=== PATIENT | male | born 1970 | race Caucasian/White ===

== ENCOUNTER 2016-12-01 07:15 | Inpatient (IN) | payer OTHER ==
[2016-11-20 13:36] VITALS: BMI 28.0
--- NOTE | 2016-11-20 14:06 | PAT Medication Instructions ---
Service Date Nov 20, 2016. Current Home Medication List Albuterol (Proair Hfa), 2 PUFFS INH Q4H PRN for Asthma Symptoms Losartan Potassium (Cozaar), 50 MG PO QAM Sertraline (Zoloft), 50 MG PO QPM Medication Instructions For Your Scheduled Surgery - Hold the following medications the morning of surgery: Losartan Potassium (Cozaar), 50 MG PO QAM - Take the following medications the morning of surgery with a sip of water: Albuterol (Proair Hfa), 2 PUFFS INH Q4H PRN for Asthma Symptoms (bring with you to hospital morning of surgery) - Take the following medications as scheduled the night before surgery: Sertraline (Zoloft), 50 MG PO QPM Albuterol (Proair Hfa), 2 PUFFS INH Q4H PRN for Asthma Symptoms If you have any questions please call us at [phone] (Anabelle Burt PA-C) or [phone] or [phone]
--- NOTE | 2016-11-20 14:34 | DIAGNOSTIC IMAGING REPORT ---
CHEST 2 VIEWS ROUTINE CLINICAL HISTORY: PAT preoperative evaluation COMPARISON STUDY: 10/12/2016 FINDINGS: The bones soft tissues and hemidiaphragms are normal. The cardiomediastinal silhouette is normal. The lungs are clear. The pulmonary vasculature is normal. IMPRESSION: Negative chest. Electronically signed by: Remy Haile M.D. 11/20/2016 2:32 PM Dictated Date/Time: 11/20/2016 2:32 PM
[2016-11-20 14:58] LABS: PARTIAL THROMBOPLASTIN RATIO 1.2; PROTHROMBIN TIME (PATIENT) 10.4 SECONDS (9.0-12.0)
--- NOTE | 2016-11-28 10:10 | HISTORY & PHYSICAL EXAMINATION ---
DATE OF ADMISSION: 12/01/2016 CHIEF COMPLAINT: Right knee pain. HISTORY OF PRESENT ILLNESS: Trevon is a 46-year-old male with a 1-year history of pain in his right knee. The patient rates his pain an 8/10. He has pain with his daily activities. He has limited standing and walking tolerance. Pain is worse with weightbearing. The patient has had injections, anti-inflammatories, and home exercise program without relief. He has failed conservative treatment and is scheduled for right knee replacement. PAST MEDICAL HISTORY: Hypertension, asthma and anxiety. He denies heart disease, diabetes or DVT. PAST SURGICAL HISTORY: Umbilical hernia, right knee arthroscopy, right ankle surgery and right knee arthroscopy. SOCIAL HISTORY: The patient denies alcohol or tobacco use. He lives in a 2-story home. He is and works as an OR aide. FAMILY HISTORY: The patient is adopted. MEDICATIONS: Losartan, sertraline, and NSAIDS. ALLERGIES: None. REVIEW OF SYSTEMS: See HPI. Ten other systems reviewed, all negative. PHYSICAL EXAMINATION: VITAL SIGNS: Height 5 foot 9, weight 193 pounds, BMI is 28. GENERAL: This is a well-developed, well-nourished male who is alert and oriented x3. Mood and affect are appropriate. HEAD, EYES, EARS, NOSE, AND THROAT: Normocephalic, atraumatic. Mucous membranes are moist and intact. NECK: Supple without lymphadenopathy. HEART: Regular rate and rhythm without murmurs, rubs or gallops. LUNGS: Clear to auscultation without wheezes or rhonchi. ABDOMEN: Soft and nontender. Bowel sounds are equal and active. EXTREMITIES: No ecchymosis, redness or warmth. He has neutral alignment. Range of motion is from 0-120 degrees with +1 laxity. He is neurovascularly intact with +5/5 strength. X-RAY EXAMINATION: AP and lateral views show joint space narrowing and osteophyte formation. IMPRESSION: Degenerative joint disease, right knee. PLAN: The patient will be admitted for a right total knee arthroplasty potentially cruciate retaining. We will plan on aspirin for DVT prophylaxis. The patient's PCP is Dr. Hunt. He is doing [facility] for home physical therapy.
[~2016-12-01] VITALS: Ht 175.3 cm; Wt 85.0 kg
[2016-12-01] VITALS (8 sets, daily range): BP systolic 105–155; BP diastolic 66–112; PULSE 62–99; TEMP 36.5–36.7; O2SAT 95–98; Ht 175.3 cm; Wt 85.0 kg
[2016-12-01] MEDS: TRANEXAMIC ACID INJ 1,000 MG in SODIUM CHLORIDE 0.9% 100ML 100 ML IV SCH ×2 (06:30→09:15)
[~2016-12-01 07:15] MED LIST: ACETAMINOPHEN 500 MG TAB PO SCH; ALBU1AER9 INH; BUPIVACAINE 0.25% 30 ML VIAL ONE; BUPIVACAINE 0.5 % 5 MG/1 ML PF 10ML VIAL ONE; CEFAZOLIN 2000 MG/60 ML D5W 60 ML IV SCH; CeleBREX 200 MG CAP PO SCH; DEXAMETHASONE 4 MG TAB PO SCH; FAMOTIDINE 20 MG TAB PO SCH; FENTANYL CITRATE INJ 50 MCG/1 ML 2 ML VIAL ONE; GABAPENTIN 300 MG CAP PO SCH; LACTATED RINGER'S 1000ML 1,000 ML IV SCH; LACTATED RINGER'S 1000ML 500 ML IV ONE; LACTATED RINGER'S 1000ML IV SCH; LOSA50TA54 PO; METOCLOPRAMIDE HCL 10 MG TAB PO SCH; MIDAZOLAM HCL 1 MG/ML 2ML VIAL ONE; OXYCODONE HCL 10 MG TABCR (OXYCONTIN) PO SCH; POLYMYXIN B SULFATE 100,000 UNITS in NSS 100ML IR SCH; ROPIVACAINE 5MG/ML 30 ML 150 MG, BUPIVACAINE/EPINEPHR 0.5% MPF 30 ML, KETOROLAC TROMETH... INFIL SCH; SERT50TA PO; VANCOMYCIN INJ 400 MG in NSS 100ML IR SCH
--- NOTE | 2016-12-01 08:23 | History & Physical Bridge Note ---
H&P Re-Evaluation Bridge Note: I have examined the patient, reviewed the History & Physical and in the interval since the performance of the History & Physical I have noted the following changes of clinical significance: No changes noted
[2016-12-01] MEDS ORDERED: ORTHO JOINT ANESTHETIC ONE (08:58)
[2016-12-01] MEDS ORDERED: ONDANSETRON INJ 2 MG/ML 2 ML VIAL ONE (08:59)
[2016-12-01] MEDS ORDERED: PROPOFOL IV EMULSION 10 MG/ML 20 ML VIAL IV ONE (08:59)
[2016-12-01] MEDS ORDERED: LIDOCAINE HCL 2% 2 ML VIAL (20MG/ML) ONE (08:59)
[2016-12-01] MEDS ORDERED: MEPERIDINE HCL 25 MG/ML CARP IV PRN (09:00)
[2016-12-01] MEDS ORDERED: EpHEDrine SULFATE INJ 50 MG/ML AMP IV PRN (09:00)
[2016-12-01] MEDS ORDERED: ONDANSETRON INJ 2 MG/ML 2 ML VIAL IV PRN ×2 (09:00→11:30)
[2016-12-01] MEDS ORDERED: HYDROmorphone INJ 1 MG/ML SYR IV PRN (09:00)
[2016-12-01] MEDS ORDERED: FENTANYL CITRATE INJ 50 MCG/1 ML 2 ML VIAL IV PRN (09:00)
[2016-12-01] MEDS ORDERED: LABETALOL HCL IV 5 MG/ML 20ML IV PRN (09:00)
[2016-12-01] MEDS ORDERED: ATROPINE SULFATE 0.1 MG/ML 5ML SYR IV PRN (09:00)
[2016-12-01] MEDS ORDERED: BACITRACIN 50000 UNIT VIAL IR ONE (10:28)
[2016-12-01] MEDS ORDERED: BUPIVACAINE/EPINEPHRINE 0.25% 1:200,000 30 ML VIAL INJ ONE (10:28)
[2016-12-01] MEDS ORDERED: EpHEDrine SULFATE 50MG/5ML SYR ONE (10:44)
[2016-12-01] MEDS ORDERED: POVIDONE-IODINE OP SOLN 30 ML BTL TOP ONE (11:21)
--- NOTE | 2016-12-01 11:21 | [facility] Post Operative Brief Note ---
Immediate Operative Summary Operative Date Dec 01, 2016. Pre-Operative Diagnosis Degenerative Joint Disease Right Knee Post-Operative Diagnosis Degenerative Joint Disease Right Knee Procedure(s) Performed Right Total Knee Arthroplasty Bi-Cruciating Surgeon Dr. Carrington Duff Vice Chair Surgeon(s) JW Lang Estimated Blood Loss 50 ml Findings lateral pf dz acl intacr Specimens A. Right Knee Bone and Tissue Complication(s) None Disposition Recovery Room / PACU
[2016-12-01] MEDS ORDERED: BISACODYL 10 MG SUPP PR PRN (11:30)
[2016-12-01] MEDS ORDERED: METOCLOPRAMIDE HCL INJ 5 MG/ML 2 ML VIAL IV PRN (11:30)
[2016-12-01] MEDS ORDERED: TRAMADOL HCL 50 MG TAB PO PRN (11:30)
[2016-12-01] MEDS ORDERED: SOD PHOSPHATE/SOD BIPHOSPHATE ENEMA 132 ML BTL PR PRN (11:30)
[2016-12-01] MEDS ORDERED: ZOLPIDEM TARTRATE 5 MG TAB PO PRN (11:30)
[2016-12-01] MEDS ORDERED: ALBUTEROL HFA 8 GM INHALER INH PRN (11:30)
[2016-12-01] MEDS ORDERED: DiphenhydrAMINE HCL 50 MG/ML VIAL IV PRN (11:30)
[2016-12-01] MEDS ORDERED: MoRPHine SULFATE 2 MG/ML CARP IV PRN (11:30)
[2016-12-01] MEDS ORDERED: MAGNESIUM HYDROXIDE SUSP 30 ML UDC PO PRN (11:30)
[2016-12-01] MEDS ORDERED: ALUMINUM/MAGNESIUM/SIMETH (MAALOX MAX) 30 ML UDC PO PRN (11:30)
--- NOTE | 2016-12-01 12:17 | DIAGNOSTIC IMAGING REPORT ---
RIGHT KNEE 1 OR 2 VIEWS ROUTINE CLINICAL HISTORY: Right knee arthritis. Arthroplasty. COMPARISON: None FINDINGS: Alignment of the right knee arthroplasty is anatomic. There is no fracture or unexpected radiopaque foreign body. Drain is in place. IMPRESSION: Expected findings following total right knee arthroplasty Electronically signed by: Morales Isidro M.D. 12/01/2016 12:15 PM Dictated Date/Time: 12/01/2016 12:15 PM
[2016-12-01] MEDS: ACETAMINOPHEN 500 MG TAB PO SCH ×2 (14:00→21:40)
[2016-12-01] MEDS: KETOROLAC TROMETHAMINE 30 MG/ML VIAL IV. SCH ×2 (14:01→19:44)
[2016-12-01] MEDS: D5W AND 1/2NSS + 20MEQ KCL 1,000 ML IV SCH ×2 (14:01→23:46)
--- NOTE | 2016-12-01 14:36 | Anesthesiology Progress Note ---
Anesthesia Post Op Note Date & Time Dec 01, 2016 at 14:35 Vital Signs Pain Intensity: 0.0 Vital Signs Past 12 Hours Date Time Temp Pulse Resp B/P Pulse Ox O2 Delivery O2 Flow Rate FiO2 12/01/16 13:50 91 16 122/80 97 2.0 12/01/16 13:20 36.7 64 18 121/80 96 Nasal Cannula 2.0 12/01/16 12:50 36.5 73 16 113/69 95 Nasal Cannula 2.0 12/01/16 12:50 Nasal Cannula 2.0 12/01/16 12:50 95 Nasal Cannula 2.0 12/01/16 12:40 65 14 111/68 97 Nasal Cannula 2 12/01/16 12:30 36.1 72 17 104/68 97 Nasal Cannula 2 12/01/16 12:20 74 24 106/70 97 Nasal Cannula 2 12/01/16 12:10 65 16 102/70 96 Nasal Cannula 2 12/01/16 12:00 63 16 104/67 97 Nasal Cannula 2 12/01/16 11:50 36.3 70 14 100/60 94 Nasal Cannula 2 12/01/16 07:58 36.5 75 20 155/112 98 Room Air Notes Mental Status: alert / awake / arousable, participated in evaluation Pt Amnestic to Procedure: Yes Nausea / Vomiting: adequately controlled Pain: adequately controlled Airway Patency, RR, SpO2: stable & adequate BP & HR: stable & adequate Hydration State: stable & adequate Neuraxial Anesthesia: was administered, sensory block is resolving Anesthetic Complications: no major complications apparent
[2016-12-01] MEDS: OXYCODONE HCL IR 5 MG TAB (IMMEDIATE RELEASE) PO PRN ×4 (15:13→23:47)
[2016-12-01] MEDS ORDERED: TRANEXAMIC ACID INJ 1,000 MG in SODIUM CHLORIDE 0.9% 100ML 100 ML IV SCH (18:00)
[2016-12-01] MEDS: CEFAZOLIN IV 2,000 MG in DEXTROSE 5% 50ML 50 ML IV SCH (18:21)
--- NOTE | 2016-12-01 19:32 | OPERATIVE REPORT ---
DATE OF OPERATION: 12/01/2016 PREOPERATIVE DIAGNOSIS: Degenerative arthritis, right knee. POSTOPERATIVE DIAGNOSIS: Same. PROCEDURE: Right total knee replacement. SURGEON: Juan R Duff MD CAMERA OPERATOR: JW Lang. ANESTHESIA: Spinal. TOURNIQUET TIME: 20 minutes at 250 mmHg. BLOOD LOSS: 50 mL. REPLACEMENT FLUIDS: 1800 mL of crystalloid. DRAINS: Hemovac x2. CULTURES: None. COMPLICATIONS: None. COMPONENTS USED: Marie \T\ Nephew Journey bicruciate retaining knee. Femur size 6, tibial insert size 5 x 9 both medially and laterally. Patella size 35. NOTE: JW Lang was present and assisted throughout due to the complicated nature of this case. She helped with preparation and setup, first assisted throughout and personally closed the capsule, subcutaneous and skin layers and applied the postoperative dressing. DESCRIPTION: Following satisfactory spinal, the patient was supine. A tourniquet was placed but not initially inflated. The lower extremity was prepared with ChloraPrep and draped sterilely. Following a surgical time-out, a midline incision was made with a medium parapatellar approach. The knee showed significant changes in the lateral compartment and patellofemoral joint. The anterior cruciate ligament was intact. Using the patient matched block, the distal femur was sized and shaped for a size 6 cruciate retaining femur. Attention was then turned to the tibia. Using the extramedullary alignment guide, the medial tibia was resected at a depth of 9 mm with appropriate slope, taking care to preserve the bony island of the anterior cruciate ligament. A trial reduction with a 9 mm insert showed full extension and 1-2 mm of laxity in flexion and extension. Therefore, the lateral side was completed and again 9 mm insert showed very good extension and flexion with appropriate laxity and the patella tracking well. The patella was freehand cut and sized and tracked well. The tourniquet was inflated for better cement technique. The trial components were removed. The capsule was prepared with the orthopedic cocktail and after irrigation, the components were cemented using Simplex G cement. A Betadine soak was performed. When the cement had hardened, the Betadine was irrigated. The tourniquet was deflated. The 2 drains were placed. The arthrotomy was closed with a running suture of 0 V-Loc and reinforced with #1 Vicryl. The subcutaneous tissues with 2-0 Vicryl, the skin with a running subcuticular stitch of 3-0 V-Loc. Dermabond and a dry dressing were applied. The patient was returned to his bed in stable condition. I attest to the content of the Intraoperative Record and any orders documented therein. Any exceptio ns are noted below.
[2016-12-01] MEDS ORDERED: SENNA 8.6 MG TAB PO SCH (21:00)
[2016-12-01] MEDS ORDERED: SERTRALINE HCL 50 MG TAB PO SCH (21:00)
[2016-12-01] MEDS: OXYCODONE HCL 10 MG TABCR (OXYCONTIN) PO SCH (21:39)
[2016-12-01] MEDS: ASPIRIN 81 MG ECTAB PO SCH (21:41)
[2016-12-02] VITALS (10 sets, daily range): BP systolic 82–123; BP diastolic 56–78; PULSE 48–61; TEMP 36.3–36.5; O2SAT 90–99
[2016-12-02] MEDS: CEFAZOLIN IV 2,000 MG in DEXTROSE 5% 50ML 50 ML IV SCH (01:48)
[2016-12-02] MEDS: KETOROLAC TROMETHAMINE 30 MG/ML VIAL IV. SCH ×3 (01:48→13:33)
[2016-12-02] MEDS: ACETAMINOPHEN 500 MG TAB PO SCH ×2 (05:38→13:33)
[2016-12-02 07:12] LABS: HEMATOCRIT 33.3 % (42-52); MEAN CELL VOLUME 89.3 fL (80-100); MEAN CORPUSCULAR HEMOGLOBIN 31.4 pg (25-34); MEAN CORPUSCULAR HGB CONC 35.1 g/dl (32-36); MEAN PLATELET VOLUME 9.7 fL (7.4-10.4); PLATELET COUNT 234 K/uL (130-400); RED BLOOD COUNT 3.73 M/uL (4.7-6.1); WHITE BLOOD COUNT 13.28 K/uL (4.8-10.8)
[2016-12-02 07:40] LABS: CALCIUM 8.3 mg/dl (8.5-10.1); POTASSIUM 4.1 mmol/L (3.5-5.1)
--- NOTE | 2016-12-02 08:04 | Anesthesiology Progress Note ---
Anesthesia Post Op Note Date & Time Dec 02, 2016 at 08:03 Vital Signs Pain Intensity: 6.0 Vital Signs Past 12 Hours Date Time Temp Pulse Resp B/P Pulse Ox O2 Delivery O2 Flow Rate FiO2 12/02/16 07:03 36.5 61 19 111/73 98 Room Air 12/02/16 07:00 Room Air 12/02/16 02:45 36.4 56 18 107/69 98 Room Air 12/01/16 23:45 Room Air 12/01/16 23:02 36.6 62 18 105/66 97 Room Air Notes Mental Status: alert / awake / arousable, participated in evaluation Pt Amnestic to Procedure: Yes Nausea / Vomiting: adequately controlled Pain: adequately controlled Airway Patency, RR, SpO2: stable & adequate BP & HR: stable & adequate Hydration State: stable & adequate Neuraxial Anesthesia: sensory block resolved Anesthetic Complications: no major complications apparent
--- NOTE | 2016-12-02 08:24 | Discharge Instructions ---
Discharge Instructions Admission Reason for Admission: Right Knee Arthritis Discharge Discharge Diagnosis / Problem: SP RIGHT TKA Discharge Goals Goal(s): Decrease discomfort, Improve function, Increase independence Activity Recommendations Activity Limitations: per Instructions/Follow-up section . Instructions / Follow-Up Instructions / Follow-Up ACTIVITY RECOMMENDATIONS: SELF CARE INSTRUCTIONS AFTER TOTAL KNEE REPLACEMENT A. You may need to continue a physical therapy program after discharge from the hospital. There are several options available to you. Your doctor will assist you in selecting the best one for you. 1. An out-patient facility 2 to 3 times a week for therapy or home therapy. 2. Continue working on all exercises taught to you in the hospital. Your goals should be to increase bending of your knee to 90 degrees and beyond and to fully straighten your knee. B. You may progress at your own pace from walking with a walker or crutches to a cane; then to no assistive devices. C. Make walking a part of your daily routine. Be up as much as comfortable with rest periods throughout the day. Rest with leg elevation is very important. Use the ice wrap frequently for the first 3-4 weeks. D. There are no restrictions on activities. You may ride in a car, shop, participate in metal cnc operator and all social activities. E. Wear the long elastic stockings (MARYLOU hose) 20 hours a day for 2 weeks after surgery. They can be removed several times a day for laundering and for a bath. F. You may shower, no tub baths until cleared by your doctor. SPECIAL CARE INSTRUCTIONS: VERY IMPORTANT TO READ AND REVIEW A. There are a few signs you need to watch for after you are home. Call [facility] if you notice any of the followin. Increased severe knee pain. Some pain is expected especially when you exercise. 2. Increased swelling in your leg or knee; pain or swelling of the calf muscle in either lower leg. 3. Any fluid drainage from the incision. 4. Shortness of breath or chest pain. B. Please call [facility] at if you have any concerns or questions about your operation or recovery. The doctor or his nurse will return your call promptly. C. You must take antibiotics before dental work, bladder, bowel or other surgery. Your doctor will provide you with a permanent care to carry describing this precaution. IMPORTANT: * REMEMBER TO TAKE ASPIRIN, 81 MG, TWICE DAILY FOR 4 WEEKS UNLESS OTHERWISE DIRECTED. THIS IS YOUR BLOOD THINNER. * HIGH RISK PATIENTS MAY BE PRESCRIBED A STRONGER BLOOD THINNER. THIS WILL BE PROVIDED AT DISCHARGE. * CALL IF INCREASED PAIN, REDNESS, DRAINAGE OR FEVER GREATER THAT 101. * WEAR MARYLOU HOSE 20 HOURS PER DAY FOR 2 WEEKS. DERMABOND Prineo- This is a mesh tape dressing that is covered with glue. It should remain in place until the incision is properly healed, usually 10-14 days. This dressing is designed to naturally slough off. You may trim the excess mesh tape as it peels off. Incision may be briefly wet in a shower. Dry immediately by blotting with a clean, dry towel. Do not bath or swim until instructed by your doctor. Do not scratch, rub, or pick at the dressing. Do not apply any topical ointments or lotions until dressing is completely removed and/or instructed by your doctor. There may be a small piece of suture material at one end of your incision. Do not pull or trim this. If it is bothersome or catching on clothing, you may cover it with a band-aid. FOLLOW UP VISIT: If appointment is not already scheduled: Please call [facility] to make a follow-up appointment for 2 weeks after your surgery at . Current Hospital Diet Patient's current hospital diet: Regular Diet Discharge Diet Recommended Diet: Regular Diet Procedures Procedures Performed: Right Total Knee Arthroplasty Bi-Cruciating Pending Studies Studies pending at discharge: no Laboratory Results Lipid Panel Test 09/10/16 08:01 Range/Units Triglycerides Level 319 H 0-150 mg/dl Cholesterol Level 244 H 0-200 mg/dl HDL Cholesterol 41 mg/dl Cholesterol/HDL Ratio 6.0 LDL Cholesterol, Calculated 139 mg/dl Medical Emergencies . Who to Call and When: Medical Emergencies: If at any time you feel your situation is an emergency, please call 911 immediately. . Non-Emergent Contact Non-Emergency issues call your: Primary Care Provider . "Provider Documentation" section prepared by Carolina Casas. VTE Core Measure Inpt VTE Proph given/why not?: Other Anticoagulation, T.E.D. Stockings, SCD's
[2016-12-02] MEDS ORDERED: ASPEC81 PO (08:26)
[2016-12-02] MEDS ORDERED: MORP-157 PO (08:26)
[2016-12-02] MEDS ORDERED: ACET-1138 PO (08:26)
[2016-12-02] MEDS ORDERED: CLB200 PO (08:26)
[2016-12-02] MEDS ORDERED: RXC5 PO (08:26)
[2016-12-02] MEDS ORDERED: SNK PO (08:26)
[2016-12-02] MEDS ORDERED: ONDA8TAB6 PO (08:26)
[2016-12-02] MEDS: ASPIRIN 81 MG ECTAB PO SCH (08:27)
[2016-12-02] MEDS: OXYCODONE HCL 10 MG TABCR (OXYCONTIN) PO SCH (08:29)
--- NOTE | 2016-12-02 08:39 | DISCHARGE SUMMARY ---
DISCHARGE DIAGNOSIS: Degenerative joint disease, right knee. SECONDARY DIAGNOSIS: None. CONSULTS: None. COMPLICATIONS: None. PROCEDURE: The patient underwent a cruciate-retaining right total knee replacement with Dr. Duff on 12/01/2016. BRIEF HISTORY: Please see previously dictated history and physical. HOSPITAL SUMMARY: The patient was admitted on the above day for the above procedure. Procedure went without complication. Postop day 1 the patient was feeling well without complaints. He denied chest pain or shortness of breath. Vital signs were stable. He was afebrile. Dressing was clean, dry and intact. He was neurovascularly intact. Calves were soft and nontender. Hemovac drained 240 and 130 mL. Hemoglobin was 11.7. The patient began physical therapy per protocol. He was discharged to home later that day in stable condition. For further review please see the chart. Lab, x-ray data and discharge instructions as per chart.
[2016-12-02] MEDS ORDERED: PANTOprazole SOD 40 MG TAB PO SCH (09:00)
[2016-12-02] MEDS ORDERED: LOSARTAN POTASSIUM 50 MG TAB PO SCH (09:00)
[2016-12-02] MEDS ORDERED: MULTIVITAMIN TAB PO SCH (09:00)
[2016-12-02] MEDS: D5W AND 1/2NSS + 20MEQ KCL 1,000 ML IV SCH (09:40)
[2016-12-02] MEDS: OXYCODONE HCL IR 5 MG TAB (IMMEDIATE RELEASE) PO PRN (09:50)
[2016-12-03] MEDS ORDERED: CeleBREX 200 MG CAP PO SCH (21:00)
== END 2016-12-02 16:45 | disposition home health service (06) | DRG 470 ==
LOC: ENRESERVDT → ENRESERVTM → C.ACU 07:15 → C.3E 07:40
PROVIDERS: ADMIT Orthopaedic Surgery; ATTEND Orthopaedic Surgery
PROC: 0SRC0J9 Replacement of Right Knee Joint with Synthetic Substitute, Cemented, Open Approach (ICD-10-PCS; principal; 2016-12-01 09:45)
DX: M17.11 Unilateral primary osteoarthritis, right knee (principal); I10 Essential (primary) hypertension; J45.909 Unspecified asthma, uncomplicated; F32.9 Major depressive disorder, single episode, unspecified; F41.9 Anxiety disorder, unspecified; Z79.1 Long term (current) use of non-steroidal anti-inflammatories (NSAID); Z79.899 Other long term (current) drug therapy

== ENCOUNTER 2016-12-22 22:02 | Emergency (ER) | payer OTHER ==
[~2016-12-22] VITALS: Ht 175.3 cm; Wt 90.7 kg
[~2016-12-22 22:02] MED LIST changes: +ACET-1138 PO; -ACETAMINOPHEN 500 MG TAB PO SCH; +ASPEC81 PO; -BUPIVACAINE 0.25% 30 ML VIAL ONE; -BUPIVACAINE 0.5 % 5 MG/1 ML PF 10ML VIAL ONE; -CEFAZOLIN 2000 MG/60 ML D5W 60 ML IV SCH; +CLB200 PO; -CeleBREX 200 MG CAP PO SCH; -DEXAMETHASONE 4 MG TAB PO SCH; -FAMOTIDINE 20 MG TAB PO SCH; -FENTANYL CITRATE INJ 50 MCG/1 ML 2 ML VIAL ONE; -GABAPENTIN 300 MG CAP PO SCH; -LACTATED RINGER'S 1000ML 1,000 ML IV SCH; -LACTATED RINGER'S 1000ML 500 ML IV ONE; -LACTATED RINGER'S 1000ML IV SCH; -METOCLOPRAMIDE HCL 10 MG TAB PO SCH; -MIDAZOLAM HCL 1 MG/ML 2ML VIAL ONE; +ONDA8TAB6 PO; -OXYCODONE HCL 10 MG TABCR (OXYCONTIN) PO SCH; -POLYMYXIN B SULFATE 100,000 UNITS in NSS 100ML IR SCH; -ROPIVACAINE 5MG/ML 30 ML 150 MG, BUPIVACAINE/EPINEPHR 0.5% MPF 30 ML, KETOROLAC TROMETH... INFIL SCH; +RXC5 PO; +SNK PO; -VANCOMYCIN INJ 400 MG in NSS 100ML IR SCH
[2016-12-22 22:15] VITALS: TEMP 36.4; Ht 175.3 cm; Wt 90.7 kg
[2016-12-22] MEDS ORDERED: MORP-86 PO (22:53)
[2016-12-22] MEDS ORDERED: LIDOCAINE 4% CREAM 15 GM TUBE EXT STA (22:58)
[2016-12-22 23:16] LABS: BASO % 0.6 %; BASO ABS # 0.04 K/uL (0-0.2); COMPLETE YES; EOS % 4.6 %; HEMATOCRIT 37.3 % (42-52); IG% 1.1 %; LYMPH ABS # 2.13 K/uL (1.2-3.4); MEAN CORPUSCULAR HGB CONC 34.9 g/dl (32-36); MONO % 6.5 %; NEUT % 54.2 %; PLATELET COUNT 376 K/uL (130-400); RED BLOOD COUNT 4.19 M/uL (4.7-6.1); WHITE BLOOD COUNT 6.46 K/uL (4.8-10.8)
[2016-12-22 23:44] LABS: BUN/CREATININE RATIO 12.3 (10-20); CALCIUM 8.8 mg/dl (8.5-10.1); CREATININE 1.2 mg/dl (0.60-1.40); POTASSIUM 4.1 mmol/L (3.5-5.1)
[2016-12-23 00:19] VITALS: BP 137/98; PULSE 63; O2SAT 99
--- NOTE | 2016-12-23 00:40 | EMERGENCY ROOM VISIT NOTE ---
History First contact with patient: 22:41 Chief Complaint: RECTAL PAIN Stated Complaint: RECTAL PAIN Nursing Triage Summary: see triage note History of Present Illness The patient is a 46 year old male who presents to the Emergency Room with complaints of rectal pain today has been straining to go the bathroom surfaces of her constipation after taking narcotics for his knee replacement. He has been taking a stool softener. Patient states he had a difficult bowel movement and had severe pain. He had a little bit of blood in it. Patient denies black stool, fever, chills, vomiting, back pain, abdominal pain, weakness. No history of hemorrhoids or anal fissures. No colonoscopy. Review of Systems See HPI for pertinent positives & negatives. A total of 10 systems reviewed and were otherwise negative. Past Medical/Surgical History Medical Problems: (1) Asthma (2) Asthma (3) Bronchitis (4) Pneumonia Surgical Problems: (1) Post-operative state Family History No pertinent family history Social History Smoking Status: Never Smoker Alcohol Use: occasionally Drug Use: none Marital Status: Housing Status: lives with family Occupation Status: employed Current/Historical Medications Scheduled Acetaminophen (Tylenol Extra Strength), 1,000 MG PO Q8H Aspirin (Aspirin EC Low Dose), 81 MG PO BID Celecoxib (Celebrex), 200 MG PO BID Losartan Potassium (Cozaar), 50 MG PO QAM Senna (Senna Lax), 17.2 MG PO HS Sertraline (Zoloft), 50 MG PO QPM Scheduled PRN Albuterol (Proair Hfa), 2 PUFFS INH Q4H PRN for Asthma Symptoms Morphine Sulfate (Morphine Sulfate Cr), 15 MG PO BID PRN for Pain Ondansetron Hcl (Zofran), 8 MG PO Q8 PRN for Nausea Oxycodone HCl (Oxycodone HCl), 5-10 MG PO Q4H PRN for Pain Allergies Coded Allergies: No Known Allergies (Verified , 12/22/16) Physical Exam Vital Signs Date Time Temp Pulse Resp B/P Pulse Ox O2 Delivery O2 Flow Rate FiO2 12/23/16 00:19 63 16 137/98 99 Room Air 12/22/16 23:07 69 16 139/97 99 Room Air 12/22/16 22:15 36.4 71 19 153/110 96 Room Air Pain Rating (0-10): 10.0 Physical Exam VITALS: Vitals are noted on the nurse's note and reviewed by myself. Vital signs stable. GENERAL: Pleasant male, in no acute distress, nondiaphoretic, well-developed well-nourished. SKIN: The skin was without rashes, erythema, edema, or bruising. There is no tenting of the skin. Capillary reflex less than 2 seconds. HEAD: Normocephalic atraumatic. EARS: External auditory canals clear, tympanic membranes pearly price without erythema or effusion bilaterally. EYES: Pupils equal round and reactive to light and accommodation. Conjunctivae without injection, sclerae without icterus. Extraocular movements intact. NOSE: Patent, turbinates without inflammation or discharge. MOUTH: Mucous membranes moist. Pharynx without erythema or exudate. Uvula midline. Airway patent. Tongue does not deviate. NECK: Supple without nuchal rigidity. No lymphadenopathy. No thyromegaly. Cervical spine is nontender. No JVD. HEART: Regular rate and rhythm without murmurs gallops or rubs. LUNGS: Clear to auscultation bilaterally without wheezes, rales or rhonchi. No dullness to percussion. No retractions or accessory muscle use. ABDOMEN: Positive bowel sounds x 4. Normal tympanic percussion. Soft, nontender, without masses or organomegaly. Hoffman sign negative. No guarding or rebound tenderness. Rectal exam: Anal fissure at 12:00, no palpable abscess, no hemorrhoids. Sushi Chef present MUSCULOSKELETAL: No muscle atrophy, erythema, or edema noted. NEURO: Patient was alert and oriented to person place and time. Normal sensation to light and sharp touch. No focal neurological deficits. Medical Decision & Procedures Laboratory Results 12/22/16 23:05 Red Blood Count 4.19, Mean Corpuscular Volume 89.0, Mean Corpuscular Hemoglobin 31.0, Mean Corpuscular Hemoglobin Concent 34.9, Mean Platelet Volume 9.0, Neutrophils (%) (Auto) 54.2, Lymphocytes (%) (Auto) 33.0, Monocytes (%) (Auto) 6.5, Eosinophils (%) (Auto) 4.6, Basophils (%) (Auto) 0.6, Neutrophils # (Auto) 3.50, Lymphocytes # (Auto) 2.13, Monocytes # (Auto) 0.42, Eosinophils # (Auto) 0.30, Basophils # (Auto) 0.04 12/22/16 23:05 Test 12/22/16 23:05 White Blood Count 6.46 K/uL (4.8-10.8) Red Blood Count 4.19 M/uL (4.7-6.1) Hemoglobin 13.0 g/dL (14.0-18.0) Hematocrit 37.3 % (42-52) Mean Corpuscular Volume 89.0 fL (80-100) Mean Corpuscular Hemoglobin 31.0 pg (25-34) Mean Corpuscular Hemoglobin Concent 34.9 g/dl (32-36) Platelet Count 376 K/uL (130-400) Mean Platelet Volume 9.0 fL (7.4-10.4) Neutrophils (%) (Auto) 54.2 % Lymphocytes (%) (Auto) 33.0 % Monocytes (%) (Auto) 6.5 % Eosinophils (%) (Auto) 4.6 % Basophils (%) (Auto) 0.6 % Neutrophils # (Auto) 3.50 K/uL (1.4-6.5) Lymphocytes # (Auto) 2.13 K/uL (1.2-3.4) Monocytes # (Auto) 0.42 K/uL (0.11-0.59) Eosinophils # (Auto) 0.30 K/uL (0-0.5) Basophils # (Auto) 0.04 K/uL (0-0.2) RDW Standard Deviation 41.2 fL (36.4-46.3) RDW Coefficient of Variation 12.9 % (11.5-14.5) Immature Granulocyte % (Auto) 1.1 % Immature Granulocyte # (Auto) 0.07 K/uL (0.00-0.02) Anion Gap 8.0 mmol/L (3-11) Est Creatinine Clear Calc Drug Dose 86.6 ml/min Estimated GFR () 84.1 Estimated GFR (Non- 72.6 BUN/Creatinine Ratio 12.3 (10-20) Calcium Level 8.8 mg/dl (8.5-10.1) Medications Administered Medications (Trade) Dose Ordered Sig/Alonso Route Start Time Stop Time Status Last Admin Dose Admin Lidocaine (AneCream 4%) 1 appln NOW STAT EXT 12/22/16 22:58 12/22/16 23:02 DC 12/22/16 23:52 1 APPLN ED Course Prior records reviewed and summarized as above. Triage Nursing notes reviewed. Additional history obtained from family. The patient's history was concerning for rectal pain after straining Differential diagnosis: Etiologies such as fissure, tear, constipation, hemorrhoid, diverticulitis, abscess, as well as others were entertained.. Physical examination: The physical examination was consistent with anal fissure ER treatment provided: lidocaine cream On reassessment the patient felt better. Diagnostics interpreted by me: The labs revealed mild anemia improved. No leukocytosis This appears to be isolated anal fissure from straining from constipation from taking narcotics for recent knee surgery. Patient was advised to use sitz bath , increase his fiber intake, take stool softeners and use cream as directed. He was advised to follow-up with GI with family doctor in a few days or here in the ER sooner for severe pain, fevers, bleeding, worsening signs or symptoms or as needed. Patient had no palpable abscess on exam. He is well-appearing. By the evaluation outlined above emergent etiologies such as abscess, diverticulitis, as well as others were deemed relatively unlikely. The pt informed about the findings as listed above. All questions were answered and pleased with the treatment. Return instructions were outlined and the patient was discharged in stable condition. Referral: The patient was referred back to GI and/or primary care physician for follow-up in 2 to 3 days for a recheck of the current condition. Medical Decision as above Impression Primary Impression: Acute anal fissure Departure Information Dispostion Home / Self-Care Condition GOOD Referrals Bentley Iglesias M.D. Forms WORK / SCHOOL INSTRUCTIONS, HOME CARE DOCUMENTATION FORM, IMPORTANT VISIT INFORMATION Patient Instructions [facility], ED Fistula Dede Anal Additional Instructions Use stool softeners daily and increase your fiber and fluid intake. Sitz baths 2-3 times a day for the anal fissure. Apply lidocaine cream 2-3 times a day to the affected area. Avoid straining. Follow up with gastroenterology or family DrMj in 2-3 days. Return to ER sooner for severe pain, fevers, black or blood in the stool, worsening signs or symptoms or as needed.
== END 2016-12-23 00:20 | disposition home or self-care (01) ==
LOC: C.EDB 22:04 → C.EDA 12-23 00:20
DX: K60.0 Acute anal fissure (principal); J45.909 Unspecified asthma, uncomplicated; Z79.82 Long term (current) use of aspirin; Z79.899 Other long term (current) drug therapy

== ENCOUNTER → 2017-06-23 | Day surgery (SDC) | payer OTHER ==
[2017-06-12 08:26] VITALS: Ht 175.3 cm; Wt 88.6 kg
[~2017-06-23] VITALS: Ht 175.3 cm; Wt 88.6 kg
[~2017-06-23] MED LIST changes: -ACET-1138 PO; -ASPEC81 PO; -CLB200 PO; +LIDOCAINE HCL 2% 2 ML VIAL (20MG/ML) ONE; +MIDAZOLAM HCL 1 MG/ML 2ML VIAL ONE; -ONDA8TAB6 PO; +PROPOFOL IV EMULSION 10 MG/ML 20 ML VIAL IV ONE; -RXC5 PO; -SNK PO
[2017-06-23 11:18] VITALS: TEMP 36.6
--- NOTE | 2017-06-23 11:29 | Endo History and Physical ---
History & Physical Date of Service: Jun 23, 2017. Chief Complaint: rectal bleeding Referring Physician: Dr. Angie Kevin History of Present Illness 46 yo CM who presents for colonoscopy secondary to rectal bleeding. Past Surgical History Hx Cardiac Surgery: No Hx Internal Defibrillator: No Hx Pacemaker: No Hx Abdominal Surgery: Yes (UMBILICAL HERNIA) Hx of Implantable Prosthesis: No Hx Post-Op Nausea and Vomiting: No Hx Cancer Surgery: No Hx Thoracic Surgery: No Hx Orthopedic: Yes (RT KNEE SCOPE, RT ANKLE REPAIR, RT SHOULDER RCR, RT TKA) Hx Urinary Tract Surgery: No Family History None Social History Smoking Status: Never Smoker Hx Substance Use: No Hx Alcohol Use: Yes (RARELY) Allergies Coded Allergies: No Known Allergies (Verified , 06/12/17) Current Medications Reported Home Medications Medications Dose Route/Sig Max Daily Dose Days Date Category Proair Hfa (Albuterol) Aers 2 Puffs INH Q4H PRN 11/16/15 Reported Cozaar (Losartan Potassium) 50 Mg Tab 50 Mg PO QAM 11/16/15 Reported Zoloft (Sertraline HCl) 50 Mg Tab 50 Mg PO QPM 11/16/15 Reported Vital Signs Weight (Kilograms): 88.64 Height (Feet): 5 Height (Inches): 9 Date Time Temp Pulse Resp B/P (MAP) Pulse Ox O2 Delivery O2 Flow Rate FiO2 06/23/17 11:18 36.6 67 18 127/88 (101) 100 Room Air Physical Exam General Appearance: WD/WN, no apparent distress Respiratory/Chest: Auscultation: breath sounds normal Cardiovascular: Heart Auscultation: RRR Abdomen: Bowel Sounds: normal Inspection & Palpation: soft, non-distended, no tenderness, guarding & rebound Assessment and Plan Assessment: 46 yo CM who presents for colonoscopy secondary to rectal bleeding. Plan: Proceed with colonoscopy.
--- NOTE | 2017-06-23 13:21 | Discharge Instructions ---
Endoscopy Patient Instructions Date / Procedure(s) Performed Jun 23, 2017. Colonoscopy Allergy Information Coded Allergies: No Known Allergies (Verified , 06/12/17) Discharge Date / Findings Jun 23, 2017. Colon polyp Internal hemorrhoids Medication Instructions OK to resume all medications today as prescribed Reported Home Medications Medications Dose Route/Sig Max Daily Dose Days Date Category Proair Hfa (Albuterol) Aers 2 Puffs INH Q4H PRN 11/16/15 Reported Cozaar (Losartan Potassium) 50 Mg Tab 50 Mg PO QAM 11/16/15 Reported Zoloft (Sertraline HCl) 50 Mg Tab 50 Mg PO QPM 11/16/15 Reported Provider Instructions Activity Restrictions - No exercising or heavy lifting for 24 hours. - Do not drink alcohol the day of the procedure. - Do not drive a car or operate machinery until the day after the procedure. - Do not make any important decisions or sign important papers in 24 hours after the procedure. Following Day: - Return to full activity which may include returning to work/school. Diet Start your diet with liquids and light foods (jello, soup, juice, toast). Then eat your usual diet if not nauseated. Treatment For Common After Affects For mild abdominal pain, bloating, or excessive gas: - Rest - Eat lightly - Lie on right side Follow-Up Information Follow-up with Dr. Angie Kevin as scheduled Anesthesia Information What You Should Know You have had a procedure that required some medicine to reduce anxiety and discomfort. This treatment is called moderate sedation. After receiving the treatment, you may be sleepy, but you will be able to breathe on your own. The effects of the treatment may last for several hours. Follow these instructions along with Activity/Diet recommendations noted above: * Do NOT do anything where dizziness or clumsiness would be dangerous. * Rest quietly at home today, then you can be up and about tomorrow. * Have a responsible person stay with you the rest of today. * You may have had an I.V. today. If so, you may take the dressing off later today. Recommendations Call your doctor if: * Trouble breathing * Continuous vomiting for more than 24 hours * Temperature above 101 degrees * Severe abdominal pain or bloating * Pain not relieved by pain medicine ordered * There is increased drainage or redness from any incision * A large amount of rectal bleeding greater than 2-3 tablespoons. (If you had a polyp/s removed or have hemorrhoids, a small amount of blood - from the rectum is to be expected.) * You have any unanswered questions or concerns. IN THE EVENT OF A SERIOUS EMERGENCY, GO TO THE NEAREST EMERGENCY ROOM Your discharge instructions were prepared by provider Chuckie Hay. Patient Instructions Signature Page Adriano Lilly Patient (or Guardian) Signature/Date: I have read and understand the instructions given to me by my caregivers. Caregiver/RN/Doctor Signature/Date: The above-named patient and/or guardian has received patient instructions on this date. + Original Patient Signature Page (only) stays with chart. Please make copy for patient.
--- NOTE | 2017-06-23 13:47 | GI REPORT ---
Procedure Date: 06/23/2017 12:50 PM Procedure: Colonoscopy Indications: Rectal bleeding Medicines: Monitored Anesthesia Care Complications: No immediate complications. Estimated Blood Loss: Estimated blood loss: none. Procedure: Pre-Anesthesia Assessment: - Prior to the procedure, a History and Physical was performed, and patient medications and allergies were reviewed. The patient's tolerance of previous anesthesia was also reviewed. The risks and benefits of the procedure and the sedation options and risks were discussed with the patient. All questions were answered, and informed consent was obtained. Prior Anticoagulants: The patient has taken no previous anticoagulant or antiplatelet agents. ASA Grade Assessment: II - A patient with mild systemic disease. After reviewing the risks and benefits, the patient was deemed in satisfactory condition to undergo the procedure. After I obtained informed consent, the scope was passed under direct vision. Throughout the procedure, the patient's blood pressure, pulse, and oxygen saturations were monitored continuously. The scope was introduced through the anus and advanced to the terminal ileum. The colonoscopy was performed without difficulty. The patient tolerated the procedure well. The quality of the bowel preparation was good. The terminal ileum, ileocecal valve, appendiceal orifice, and rectum were photographed. Findings: A 7 mm polyp was found in the ascending colon. The polyp was sessile. The polyp was removed with a hot snare. Resection and retrieval were complete. Non-bleeding internal hemorrhoids were found during retroflexion. The hemorrhoids were small. Impression: - One 7 mm polyp in the ascending colon, removed with a hot snare. Resected and retrieved. - Non-bleeding internal hemorrhoids. Recommendation: - Resume previous diet. - Continue present medications. - Repeat colonoscopy for surveillance based on pathology results. - Return to primary care physician as previously scheduled. Chuckie Hay DO 06/23/2017 1:46:32 PM This report has been signed electronically. Note Initiated On: 06/23/2017 12:50 PM I attest to the content of the Intraoperative Record and orders documented therein, exceptions below
[2017-06-23 13:52] VITALS: BP 137/88; PULSE 66; O2SAT 98
--- NOTE | 2017-06-23 13:56 | Anesthesiology Progress Note ---
Anesthesia Post Op Note Date & Time Jun 23, 2017 at 13:55 Vital Signs Pain Intensity: 0 Vital Signs Past 12 Hours Date Time Temp Pulse Resp B/P (MAP) Pulse Ox O2 Delivery O2 Flow Rate FiO2 06/23/17 13:52 66 14 137/88 (104) 98 Room Air 06/23/17 13:37 70 14 116/85 (95) 98 Room Air 06/23/17 13:22 65 14 115/75 (88) 96 Room Air 06/23/17 11:18 36.6 67 18 127/88 (101) 100 Room Air Notes Mental Status: alert / awake / arousable, participated in evaluation Pt Amnestic to Procedure: Yes Nausea / Vomiting: adequately controlled Pain: adequately controlled Airway Patency, RR, SpO2: stable & adequate BP & HR: stable & adequate Hydration State: stable & adequate Anesthetic Complications: no major complications apparent
== END | disposition home or self-care (01) ==
LOC: C.GI 10:33
PROVIDERS: ATTEND Internal Medicine
DX: K62.5 Hemorrhage of anus and rectum (principal); D12.2 Benign neoplasm of ascending colon; Z96.651 Presence of right artificial knee joint; J45.909 Unspecified asthma, uncomplicated; K64.8 Other hemorrhoids

== ENCOUNTER 2017-10-03 13:17 | Emergency (ER) | payer OTHER ==
[~2017-10-03] VITALS: Ht 175.3 cm; Wt 88.1 kg
[~2017-10-03 13:17] MED LIST changes: -LIDOCAINE HCL 2% 2 ML VIAL (20MG/ML) ONE; -MIDAZOLAM HCL 1 MG/ML 2ML VIAL ONE; -PROPOFOL IV EMULSION 10 MG/ML 20 ML VIAL IV ONE
[2017-10-03 13:29] VITALS: BP 153/98; TEMP 36.4; Ht 175.3 cm; Wt 88.1 kg
[2017-10-03] MEDS ORDERED: VNTHFA/IN INH (14:11)
--- NOTE | 2017-10-03 14:27 | EMERGENCY ROOM VISIT NOTE ---
History Report prepared by Mitali: Robert Lira Under the Supervision of: Dr. Bentley Chan M.D. First contact with patient: 13:52 Chief Complaint: RECTAL PAIN Stated Complaint: ANAL FISSURE,SEVERE RECTAL PAIN Nursing Triage Summary: triage note: pt reports hx of anal fistual with increased burning, nausea and bleeding since this am. History of Present Illness The patient is a 47 year old male who presents to the Emergency Room with complaints of worsening rectal pain starting a few months ago. The patient notes that he has an anal fistula and hemorrhoids after getting a knee replacement and getting constipated with the pain medications. The patient states that the pain has gotten much worse, and this morning the burning got much worse, and he was starting the have some rectal bleeding. He notes that he has been able to have bowel movements with stool softeners, though he has some burning, and he states that he has hard stools and then sometimes diarrhea. The patient additionally reports having some nausea today. He denies any fevers, abdominal pain, and he does not tsering any blood thinners. The patient states that he has been using hydrocortisone, lidocaine, and diltiazem 2%. Source of History: patient Onset: a few months ago Position: other (rectum) Quality: burning Timing: worsening Associated Symptoms: + nausea, + diarrhea, No fevers, No abdominal pain Note: Associated symptoms: Bleeding Review of Systems See HPI for pertinent positives & negatives. A total of 10 systems reviewed and were otherwise negative. Past Medical & Surgical Medical Problems: (1) Asthma (2) Asthma (3) Bronchitis (4) Pneumonia Surgical Problems: (1) Post-operative state Old medical records were reviewed. Nurse's notes were reviewed and I agree with. Family History No pertinent family history Social History Smoking Status: Never Smoker Alcohol Use: occasionally Drug Use: none Marital Status: Housing Status: lives with family Occupation Status: employed Current/Historical Medications Scheduled Losartan Potassium (Cozaar), 50 MG PO QAM Sertraline (Zoloft), 50 MG PO QPM Scheduled PRN Albuterol Hfa (Ventolin Hfa), 2-4 PUFFS INH Q6H PRN for SOB/Wheezing Allergies Coded Allergies: No Known Allergies (Verified , 10/03/17) Physical Exam Vital Signs Date Time Temp Pulse Resp B/P (MAP) Pulse Ox O2 Delivery O2 Flow Rate FiO2 10/03/17 14:30 60 16 98 10/03/17 13:29 36.4 62 18 153/98 99 Room Air Physical Exam General: Non-ill appearing middle aged male in no acute distress. HEENT: Normal cephalic atraumatic. Pupils are equal round and reactive to light. Extraocular movements are intact. Oropharynx is pink with moist mucous membranes. No swelling of the mouth lips or tongue. Neck: Supple with a midline trachea. No meningeal signs or stiffness, no JVD or bruits. No Stridor. Chest: Clear to auscultation bilaterally. No wheezes or rhonchi. No increased work of breathing. Heart: regular rate and rhythm. Abdomen: Soft nontender, nondistended without rebound guarding or rigidity. Rectal: He has a large anal fissure at about the 12 o'clock position. No bleeding. Tenderness to palpation. No pus. No hemorrhoids Extremities: No cyanosis clubbing or edema. No calf tenderness or assymetry Spine/Back. Non tender to palpation. No CVA tenderness Skin: Good turgor without rashes. Neurologic exam: Cranial nerves two through 12 are intact. Motor and sensation are intact and symmetrical throughout. Medical Decision & Procedures ED Course 1352: Past medical records reviewed. The patient was evaluated in room B8, and a complete history and physical examination were performed. 1410: I discussed the patient's case with Dr. Graves, GI, and she said to try nitro ointment and stop everything else. 1425: Upon reevaluation, the patient is doing well. I discussed the results and treatment plan with him. He verbalized agreement of the treatment plan. The patient was discharged home. Medical Decision Differentials include, but are not limited to; anal fissure, anemia, constipation. This patient comes in with rectal pain and ongoing issues with anal fissure on exam he doesn't large anal fissure. He is not actively bleeding. He has no evidence of hemorrhoids or abscess. He is very tender and he's been trying multiple different creams. I discussed the case with the on-call labor trainer Dr. Ham. She recommends having him use nitroglycerin and stop the other creams, I relayed this to the patient and I have written him a prescription for nitroglycerin ointment and have checked with our pharmacist on the dosing. He can continue to use sitz baths and stool softeners. He should return if: Increasing pain, worsening of symptoms, any new problems or concerns. Medication Reconcilliation Current Medication List: was personally reviewed by me Blood Pressure Screening Patient's blood pressure: Elevated blood pressure Blood pressure disposition: Elevated BP felt to be situational Consults Time Called: 1406 Consulting Physician: ANGELA Be Returned Call: 1410 I discussed the patient's case with ANGELA Be, and she said to try nitro ointment and stop everything else. Impression Primary Impression: Anal fissure Additional Impression: Rectal pain Scribe Attestation The scribe's documentation has been prepared under my direction and personally reviewed by me in its entirety. I confirm that the note above accurately reflects all work, treatment, procedures, and medical decision making performed by me. Departure Information Dispostion Home / Self-Care Referrals Angie Kevin DO (PCP) Forms HOME CARE DOCUMENTATION FORM, IMPORTANT VISIT INFORMATION, WORK / SCHOOL INSTRUCTIONS Patient Instructions [facility] Additional Instructions Rest Use a warm sitz and stool softener Stop your current creams Use Rectiv (nitroglycerin) 0.4%-apply twice a day to anal fissure Do not overuse this medication Return if: Increasing pain or bleeding, worsening of symptoms, any new problems or concerns. Keep your appointment with Dr. hathaway on Thursday Problem Qualifiers
[2017-10-03 14:30] VITALS: PULSE 60; O2SAT 98
== END 2017-10-03 14:31 | disposition home or self-care (01) ==
LOC: C.EDB 13:19
DX: K60.2 Anal fissure, unspecified (principal); K62.89 Other specified diseases of anus and rectum; J45.909 Unspecified asthma, uncomplicated; Z87.01 Personal history of pneumonia (recurrent); Z79.899 Other long term (current) drug therapy